=== PATIENT | male | born 1955 | race Caucasian/White ===

== ENCOUNTER 2017-08-21 15:00 | Outpatient (RCR) | payer OTHER, SELFPAY ==
--- NOTE | 2017-05-26 12:03 | HP.PTEVAL_ITS ---
Patient's Visit Information YURY JAIME is a 62 year old M referred to Physical Therapy by Out of Town Doctor with a diagnosis of unilateral primary osteorthritis right,pain right hip,unequal limb length. Date of Evaluation: 05/26/17 Physical Therapist: [place]ac[place] Lindsey PT, - Visit Plan Frequency: 3x /Week Duration: 6 Weeks Plan: THR ANTERIOR APPROACH. AROM ,STRENGTHENING HIP/KNEE ,GAIT/BALANCE/STAIRS - Subjective Subjective: This 62 y/o male presents to physical therapy with right THR with anterior approach May [address] Zee at [facility]. Patient d/ c next day to home WBAT with anterior approach precautions.Patient has had right hip pain 2 years worse past 1year progessivelly worse. Patient has tried PT in past.Patient has difficulty with ADLS' and unable to return to job demands. Denies parathesia/tingling. HOME SITUATION: 2story home with 3steps with rail ,flight stairs 2nd. Currently sleeps in recliner downstairs. Walking in shower. VOCATION: railroad. SOCIAL: - Pain Right Hip Pain Intensity (Out of 10): 2 Pain Intensity Range: 10 - Objective POSTURE: mild foward posture. NEURO: denies parathesia/tingling,inact. INSCION : well approximate with clear strips inact. GAIT: ambulates with fww WBAT with mild decrease stance time swing phase. BALANCE: fair+ with fww. MMT: quads R 3 +/5/5,L -4-/5,hams 4-/5,hip flexion R - 3-/5,L- 3+/5,ABD R 2/5 ,L-3+/5. AROM: flexion knee flexion 120 degrees,abd 20 degrees,hip flexion 80 degrees supine. STAIRS : ascend/descend 12 steps with rails one step at a time. [facility] - Goals Goal 1:: Independant with HEP Goal Time Frame: 4-6 Weeks Goal 2:: Ambulate with/without cane community distances with improved quality gait Goal Time Frame: 4-6 Weeks Goal 3:: Increase strength right hip flexors 4-/5,and 3+/5 quads/hams4/5 to improve function and ADL'S and function to RTW. Goal Time Frame: 4-6 Weeks Goal 4:: Improve dynamic balance good - Goal Time Frame: 4-6 Weeks Goal 5:: Ascsend/descend 12 steps with rail Independant Goal Time Frame: 4-6 Weeks Goal 6:: Patient return to prior function without limiations Goal Time Frame: 4-6 Weeks - Rehabilitation Potential Physical Therapy Diagnosis: This patient underewnt s/p THR May 22 with anterior approach with decrease ROM.strength hip/kneegait ,balance ,ADLS' and stairs thus benifit from skilled PT Rehabilitation Potential: Good - Anticipated Interventions Patient/Client Instruction: Educate patient on: Condition, Plan of Care For the Purpose of:: To decrease pain, To increase ROM, To improve muscle performance and motor function, To improve ability to perform ADL's, To increase tolerance to activity/condition/position, To improve performance and independence with ADL's, To improve ability of physical actions for home/ community/work/leisure, To improve gait and locomotor functions, To improve health of tissue, To decrease soft tissue restriction, To increase flexibility/ ROM, To improve endurance, To improve balance, To improve tolerance to ADL's Therapeutic Exercise to Include: Strength training, Endurance training, Balance training, Gait and locomotor training, Active ROM For the Purpose of:: To decrease pain, To increase ROM, To improve muscle performance and motor function, To improve ability to perform ADL's, To increase tolerance to activity/condition/position, To improve performance and independence with ADL's, To improve ability of physical actions for home/ community/work/leisure, To improve gait and locomotor functions, To improve health of tissue, To decrease soft tissue restriction, To increase flexibility/ ROM, To improve endurance, To improve balance, To improve safety with gait, To improve ability to perform tasks related to life management Functional Training to Include: Gait training For the Purpose of:: To improve muscle performance and motor function, To improve ability to perform ADL's, To increase tolerance to activity/condition/ position, To improve performance and independence with ADL's, To improve ability of physical actions for home/community/work/leisure, To improve health of tissue, To improve endurance, To improve balance Cryotherapy (ice pack, ice massage): Yes For the Purpose of:: To decrease pain, To decrease swelling/inflammation Thank you for the opportunity to evaluate your patient. For Medicare and Medicare HMO plans, please review the plan of care and approve it. It will need to be FAXED BACK to us at [phone] for Medicare purposes. Please let me know if there are questions or concerns regarding this plan of care. Physician Signature: Date:
--- NOTE | 2017-08-21 16:00 | HP.PTDCSUM ---
HP - PT D/C Summary It has been my pleasure to treat YURY JAIME under orders from ILYA COOK, for the diagnosis of unilateral primary osteorthritis right,pain right hip,unequal limb length for a total of 26 visit(s). Discharge Date: 08/21/17 Please see the following information for a summary of their discharge status. - Subjective Subjective: Patient doing well ..no pain. Doing Home base ex's on own at home to iclude the GYM. [place] community distance. Srairs alternating. Perform ALL all ADL'S and housework tasks without difficulty. - Pain Right Hip Pain Intensity (Out of 10): 0 - Overall Improvement % Improvement: 95 - Objective Objective/Function: POSTURE: hips slightly /knees slight valgus. GAIT: normal edwin reciprocal pattern ,. MMT: quads/hams/hip flexion 4/5,hip abd 4-/5. STAIRS: alternating with rail. BALANCE: NORMAL - Goals Goal 1:: Independant with HEP Goal Progress: Goal Met Goal 2:: Ambulate with/without cane community distances with improved quality gait Goal Progress: Goal Met Goal 3:: Increase strength right hip flexors 4-/5,and 3+/5 quads/hams4/5 to improve function and ADL'S and function to RTW. Goal Progress: Goal Met Goal 4:: Improve dynamic balance good - Goal Progress: Goal Met Goal 5:: Ascsend/descend 12 steps with rail Independant Goal Progress: Goal Met Goal 6:: Patient return to prior function without limiations Goal Progress: Goal Met - Plan Plan: D/C TO HEP (HOME BASE EXERCISE AND INDEPENDANT GYM). RTW DATE PER MD - D/C Information Discharge Comments: HOME EXERCISE PROGRAM AND INDEPENDANT WITH GYM EX'S If there are questions or concerns regarding this patient's physical therapy, please feel free to call me at [phone]. Thank you for the referral of this patient. Sincerely, Michoacano Lindsey, PT,
== END 2017-08-21 19:00 | disposition home or self-care (01) ==
LOC: PT 15:00
DX: M16.11 Unilateral primary osteoarthritis, right hip (principal); M21.751 Unequal limb length (acquired), right femur; M25.551 Pain in right hip
CPT/HCPCS: 97110; 97162; 97530